=== PATIENT | female | born 1970 | race Caucasian/White ===

== ENCOUNTER 2024-02-04 14:32 | Outpatient (CLI) | payer OTHER, SELFPAY ==
--- NOTE | 2024-02-04 15:00 | MM_ITS ---
Patient: SY SANTORO Facility:?[facility] Patient ID:?[id number] Site Patient ID:?[id number] Site :?[id number] Study:?XRay-Breast Bilateral 3D W/CAD-02/04/2024 10:39:08 AM Ordering Physician:?Not A Local Final Report: BILATERAL SCREENING MAMMOGRAM WITH COMPUTER-AIDED DETECTION AND TOMOSYNTHESIS TECHNIQUE: CC and MLO views were obtained. These mammographic images have been obtained using full-field digital technique. These mammographic images were interpreted with the benefit of computer-aided detection. Breast Tomosynthesis was used in this interpretation. COMPARISON FILM: 08/16/21. FINDINGS: The breasts are heterogeneously dense, which may obscure small masses. IMPRESSION: There is no radiographic evidence for malignancy. ASSESSMENT: BI-RADS Category 2: Benign RECOMMENDATION: Routine screening mammogram in 1 year. A lay language report of this examination will be provided to the patient. Víctor Langford M.D. Diagnostic Radiologist [email or web address] DSM/sp R& Transcribed: 1:54 p.m. SP/Dictated by: Víctor Langford MD @ 02/12/2024 11:10:00 AM Signed by:?Víctor Langford MD @02/12/2024 3:26:00 PM (Electronic Signature)
== END 2024-02-04 14:33 | disposition home or self-care (01) ==
LOC: MAMMO 14:39
DX: Z12.31 Encounter for screening mammogram for malignant neoplasm of breast (principal); R92.2 Inconclusive mammogram
CPT/HCPCS: 77063; 77067